=== PATIENT | male | born 1955 | race Caucasian/White ===

== ENCOUNTER → 2016-08-16 | Outpatient (CLI) | payer OTHER | LOC: CT 09:23 | DX: R59.1 Generalized enlarged lymph nodes (principal); R06.02 Shortness of breath; R10.84 Generalized abdominal pain; E27.8 Other specified disorders of adrenal gland; Z90.49 Acquired absence of other specified parts of digestive tract; Z90.89 Acquired absence of other organs | CPT/HCPCS: Q9962 ==